=== PATIENT | female | born 1930 | race Caucasian/White ===

== ENCOUNTER 2019-01-07 15:00 | Inpatient (IN) | payer MEDICARE, MEDICAID ==
[~2019-01-07] VITALS: Ht 162.6 cm; Wt 51.7 kg
[2019-01-07] MEDS ORDERED: SODIUM CHLORIDE 0.9% 1,000ML IVBOLUS ONE (15:30)
[2019-01-07] MEDS ORDERED: SODIUM CHLORIDE FLUSH 10ML SYR IVF ONE (15:30)
[2019-01-07 15:36] LABS: BASOPHILS # (AUTO) 0.03 x10^3/uL (0-0.1); BASOPHILS % (AUTO) 0 % (0-1); EOSINOPHILS # (AUTO) 0.11 x10^3/uL (0-0.4); EOSINOPHILS % (AUTO) 1 % (1-7); LYMPHOCYTES # (AUTO) 0.73 x10^3/uL (1-3.4); LYMPHOCYTES % (AUTO) 5 % (22-44); MD NO; MEAN CORPUSCULAR HEMOGLOBIN 31.5 pg (27.0-34.8); MEAN CORPUSCULAR HGB CONC 32.9 g/dL (32.4-35.8); MEAN CORPUSCULAR VOLUME 95.8 fL (80-100); MEAN PLATELET VOLUME 7.3 fL (7.4-10.4); MONOCYTES # (AUTO) 0.66 x10^3/uL (0.2-0.8); MONOCYTES % (AUTO) 5 % (2-9); NEUTROPHILS # (AUTO) 12.63 x10^3/uL (1.8-6.8); NEUTROPHILS % (AUTO) 89 % (42-75); PLATELET COUNT 271 x10^3/uL (130-400)
[2019-01-07 15:38] LABS: ALBUMIN 3.7 g/dL (3.4-5.0); ANION GAP 6 mmol/L (5-15); CALCIUM 8.9 mg/dL (8.5-10.1); CHLORIDE 110 mmol/L (98-107)
[2019-01-07 15:42] LABS: ALANINE AMINOTRANSFERASE 17 U/L (12-78); ALKALINE PHOSPHATASE 60 U/L (45-117); BILIRUBIN,TOTAL 0.4 mg/dL (0.2-1.0); CREATININE 0.86 mg/dL (0.55-1.02); TOTAL PROTEIN 7.3 g/dL (6.4-8.2)
--- NOTE | 2019-01-07 15:43 | NUR ---
ARRIVED BACK FROM LUNCH AND PATIENT IN BED, LAYING IN COPIOUS AMOUNTS OF LOOSE SMELLY STOOL. SHE IS A POOR HISTORIAN AND ONLY TELLS ME THAT SHE HAS A DAUGHTER THAT WORKS AT [employer] AND SHE IS AT THE WRONG HOSPITAL, THAT SHE WAS AT WORK SHE THINKS AT [employer] AND HAD ABDOMINAL CRAMPING - AND THEY CALLED AMBULANCE AND BROUGHT HER HERE. SHE IS COVERED IN HER PANTS IN POOP. WHEN REMOVED PANTS SHE HAS IT FROM TOE TO HIPS AND IS PUTTING HER HANDS IN IT. BATHED HER. CHANGED HER. STRAIGHT CATH'D HER AND SENT TO LAB. RAILS UP ON [facility].
[2019-01-07 15:59] LABS: MICROSCOPIC AUTO
--- NOTE | 2019-01-07 16:03 | NUR ---
PATIENT IS GOING TO CT SCAN
[2019-01-07 16:04] LABS: CULTURE INDICATED? YES
[2019-01-07] MEDS ORDERED: OMNIPAQUE 350 MG/ML, 100ML BOTTLE ONE (16:30)
--- NOTE | 2019-01-07 16:48 | NUR ---
PATIENT BACK FROM CT SCAN. AWAITING RESULTS.
--- NOTE | 2019-01-07 16:53 | NUR ---
STOOL SAMPLE SENT TO LAB. PATIENT IN BED GETTING FLUIDS AWAITING RESULTS.
--- NOTE | 2019-01-07 17:02 | NUR ---
PATIENT TO BE ADMITTED. AWAITING ADMISSION ORDERS AND BED.
[2019-01-07] MEDS ORDERED: METRONIDAZOLE PMX 500MG/100ML 100 ML ONE (17:11)
--- NOTE | 2019-01-07 17:21 | NUR ---
HERE ADMITTING PATIENT. SHE IS A POOR HISTORIAN AND DOESN'T KNOW HER MEDICATIONS. GOT HER UP AGAIN TO BEDSIDE COMMODE.
[2019-01-07] MEDS: SODIUM CHLORIDE 0.9% 1,000 ML IV SCH (17:25)
[2019-01-07] MEDS ORDERED: ENOXAPARIN 40 MG/0.4 ML SQ SCH (17:30)
[2019-01-07] MEDS ORDERED: ONDANSETRON 2MG/ML, 2ML IVPush PRN (17:30)
[2019-01-07] MEDS ORDERED: ACETAMINOPHEN 325 MG TABLET PO PRN (17:30)
[2019-01-07] MEDS ORDERED: METRONIDAZOLE PMX 500MG/100ML 100 ML IV ONE (17:30)
[2019-01-07] MEDS ORDERED: ONDANSETRON ODT 4 MG PO PRN (17:30)
--- NOTE | 2019-01-07 17:43 | NUR ---
PATIENT FELL ASLEEP AND THEN HER SAT'S DROPPED TO 80'S. PLACED ON 4 LITERS NC. CAME BACK UP QUICKLY.
[2019-01-07 17:47] LABS: CLOSTRIDIUM DIFFICILE ANTIGEN NEGATIVE; CLOSTRIDIUM DIFFICILE TOXIN NEGATIVE (Negative)
--- NOTE | 2019-01-07 18:19 | NUR ---
patient is not cooperative. 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 she constantly is getting up, taking oxygen off, and removing equipement. she is difficult to help. when patient is not in direct supervision she tries to get up to bedside commode but then appears to have self care deficits and need assistance getting clean and back in bed. patient awaiting bed upstairs. isolation r/o cdiff. explaining to her frequently the importance of call light before she gets up, and oxygen. will monitor.
[2019-01-07] MEDS ORDERED: ENOXAPARIN 40 MG/0.4 ML ONE (18:22)
--- NOTE | 2019-01-07 18:26 | NUR ---
called upstairs for report. on hold a long time currently.
--- NOTE | 2019-01-07 18:29 | NUR ---
called second time for report. tech looking for nurse. sanjay rn took report sbar.
[2019-01-07 20:29] VITALS: BP 138/78
[2019-01-08] MEDS: LACTOBACILLUS CHEW TABLET PO SCH ×2 (00:03→08:16)
[2019-01-08] MEDS: VANCOMYCIN 50 MG/ML ORAL SUSP PO SCH ×2 (00:04→06:09)
[2019-01-08] MEDS: SODIUM CHLORIDE 0.9% 1,000 ML IV SCH (00:04)
[2019-01-08 01:25] VITALS: BP 131/71
[2019-01-08 05:30] LABS: MEAN CORPUSCULAR HGB CONC 32.8 g/dL (32.4-35.8); MEAN CORPUSCULAR VOLUME 94.7 fL (80-100); MEAN PLATELET VOLUME 6.9 fL (7.4-10.4); PLATELET COUNT 243 x10^3/uL (130-400); RED BLOOD COUNT 4.79 x10^6/uL (3.82-5.3); RED CELL DISTRIBUTION WIDTH 14.1 % (9.6-15.2)
[2019-01-08 05:40] LABS: ANION GAP 3 mmol/L (5-15); CALCIUM 8.3 mg/dL (8.5-10.1); CHLORIDE 109 mmol/L (98-107)
[2019-01-08 05:41] LABS: CREATININE 0.62 mg/dL (0.55-1.02)
[2019-01-08 05:58] LABS: BASOPHILS # (AUTO) 0.05 x10^3/uL (0-0.1); BASOPHILS % (AUTO) 1 % (0-1); EOSINOPHILS # (AUTO) 0.26 x10^3/uL (0-0.4); EOSINOPHILS % (AUTO) 4 % (1-7); LYMPHOCYTES # (AUTO) 1.17 x10^3/uL (1-3.4); LYMPHOCYTES % (AUTO) 16 % (22-44); MD SCAN; MONOCYTES # (AUTO) 0.58 x10^3/uL (0.2-0.8); MONOCYTES % (AUTO) 8 % (2-9); NEUTROPHILS # (AUTO) 5.27 x10^3/uL (1.8-6.8); NEUTROPHILS % (AUTO) 72 % (42-75)
[2019-01-08] MEDS ORDERED: HEPARIN 5,000 UNITS/ML, 1ML SQ SCH (07:30)
[2019-01-08] MEDS ORDERED: DIPHENOXYLATE/ATROPINE TABLET PO PRN (07:30)
[2019-01-08 08:13] VITALS: BP 131/78
[2019-01-08] MEDS ORDERED: ACID1TAB7 PO (09:04)
== END 2019-01-08 12:54 | disposition home or self-care (01) | DRG 641 ==
LOC: ED 17:03 → EDIP 17:04 → ED 17:41 → 3NE 19:30
PROVIDERS: ADMIT Internal Medicine; ATTEND Internal Medicine
DX: E86.0 Dehydration (principal); R11.2 Nausea with vomiting, unspecified; R79.89 Other specified abnormal findings of blood chemistry; F03.90 Unspecified dementia, unspecified severity, without behavioral disturbance, psychotic disturbance, mood disturbance, and anxiety; F41.9 Anxiety disorder, unspecified; I10 Essential (primary) hypertension; R19.7 Diarrhea, unspecified; E86.9 Volume depletion, unspecified; T36.95XA Adverse effect of unspecified systemic antibiotic, initial encounter; Y92.89 Other specified places as the place of occurrence of the external cause
CPT/HCPCS: 36415; 74177; 80048; 80053; 81001; 83690; 85025; 87086; 87324; 99285; G0378; J1644; J1650; J3370; Q9967; J7030